=== PATIENT | male | born 1965 | race Two or more races ===

== ENCOUNTER 2022-08-17 13:15 | Emergency (ER) | payer OTHER ==
[~2022-08-17] VITALS: Ht 182.9 cm; Wt 86.2 kg
[2022-08-17] MEDS ORDERED: SEROQUEL400 MG (13:55)
[2022-08-17] MEDS ORDERED: DEPAKOTE ER500 MG (13:55)
[2022-08-17] MEDS ORDERED: DEPAKOTE ER250 MG (13:55)
[2022-08-17] MEDS ORDERED: LIPITOR20 MG (13:56)
[2022-08-17] MEDS ORDERED: PAXIL20 MG (13:56)
[2022-08-17] MEDS ORDERED: LOSARTAN-HCTZ1 EAC2 (13:57)
== END 2022-08-17 21:09 | disposition home or self-care (01) ==
LOC: ER 13:15
DX: B34.9 Viral infection, unspecified (principal); F32.A Depression, unspecified; Z20.822 Contact with and (suspected) exposure to COVID-19